=== PATIENT | female | born 1970 | race Caucasian/White ===

== ENCOUNTER 2020-10-01 07:01 | Inpatient (IN) | payer BC ==
--- NOTE | 2020-10-01 06:53 | PCM.PREANE ---
Preanesthetic Assessment - Procedure Proposed Procedure: LAVH with BS - Anesthesia/Transfusion/Family Hx Anesthesia History: Prior Anesthesia Without Reaction Type of Anesthesia Reaction: Excessive Nausea/Vomiting Family History of Anesthesia Reaction: No Transfusion History: No Prior Transfusion(s) Intubation History: Unknown - Review of Systems General: No Symptoms Pulmonary: No Symptoms (ETOH: rarely) Cardiovascular: No Symptoms Gastrointestinal: No Symptoms Neurological: No Symptoms (Lower back pain: 0/10), Headache, Change in Speech Other: Reports: None - Physical Assessment NPO Status Date: 09/30/20 NPO Status Time: 20:00 Vital Signs: HR:78 Sat:96% Temp:97.8 Resp:16 B/P:114/86 Height: 1.63 m Weight: 78 kg ASA Class: 1 Mental Status: Alert & Oriented x3 Airway Class: Mallampati = 2 Dentition: Reports: Normal Dentition, Caries Thyro-Mental Finger Breadths: 3 Mouth Opening Finger Breadths: 3 ROM/Head Extension: Full Lungs: Clear to Auscultation, Normal Respiratory Effort Cardiovascular: Regular Rate, Regular Rhythm, No Murmurs - Lab Values: All labs reviewed and noted and within acceptable ranges to proceed with scheduled procedure. - Allergies Allergies/Adverse Reactions: Allergies Allergy/AdvReac Type Severity Reaction Status Date / Time No Known Allergies Allergy Verified 09/30/20 11:18 - Anesthesia Plan Pre-Op Medication Ordered: None, Other (scopalamine patch behind right ear at 0734.) - Acknowledgements Anesthesia Type Planned: General Anesthesia Pt an Appropriate Candidate for the Planned Anesthesia: Yes Alternatives and Risks of Anesthesia Discussed w Pt/Guardian: Yes Pt/Guardian Understands and Agrees with Anesthesia Plan: Yes PreAnesthesia Questionnaire HEENT History: Reports: Impaired Vision, Other (See Below) Other HEENT History: sore throat, laryngitis Genitourinary History: Reports: Renal Calculus, Other (See Below) Other Genitourinary History: Dysuria with kidney stone Other Musculoskeletal History: history of low back pain Neurological History: Reports: Headaches, Chronic - Past Surgical History HEENT Surgical History: Reports: Oral Surgery Cardiovascular Surgical History: Reports: None GI Surgical History: Reports: None Female Surgical History: Reports: Section Musculoskeletal Surgical History: Reports: ORIF, Other (See Below) Other Musculoskeletal Surgeries/Procedures:: Right ankle ORIF with additional surgery in the past to remove the hardware Oncologic Surgical History: Reports: None - SUBSTANCE USE Tobacco Use Status *Q: Never Tobacco User Recreational Drug Use History: No - HOME MEDS Home Medications: Home Meds Multivitamin 1 tab PO DAILY 09/30/20 [History] - CURRENT (IN HOUSE) MEDS Current Meds: Current Medications Lactated Ringer's (Ringers, Lactated) 1,000 mls @ 125 mls/hr IV ASDIRECTED CECILIA Stop: 10/01/20 23:00 Lidocaine/Sodium Bicarbonate (Lidocaine 1%/Sod Bicarbonate In Ns 8.4% 1 Ml Syringe) 0.25 ml IDERM ONETIME PRN PRN Reason: Prior to IV Start Stop: 10/01/20 18:00 Sodium Chloride (Sodium Chloride 0.9% 10 Ml Syringe) 10 ml FLUSH ASDIRECTED PRN PRN Reason: Keep Vein Open Stop: 10/01/20 18:00
[~2020-10-01 07:01] MED LIST: Lactated Ringers 1,000 ML IV SCH; Lidocaine 1%/Sod Bicarbonate in NS 8.4% 1 ML Syringe IDERM PRN; Sodium Chloride 0.9% 10 ML Syringe FLUSH PRN
[2020-10-01] MEDS ORDERED: Scopolamine 1.5 MG Transdermal Patch TOP ONE (07:20)
[2020-10-01] MEDS ORDERED: Lidocaine 1% with EPINEPHrine 1:100,000 10 ML MDV ONE (07:22)
[2020-10-01] MEDS ORDERED: Sodium Chloride 0.9% 50 ML SDV ONE (07:22)
[2020-10-01] MEDS ORDERED: Bupivacaine 0.5% 30 ML SDV ONE (07:22)
[2020-10-01] MEDS ORDERED: Dexamethasone 4 MG/ML 5 ML MDV ONE (07:28)
[2020-10-01] MEDS ORDERED: HYDROmorphone 0.5 MG/0.5 ML Syringe ONE ×2 (07:28→08:34)
[2020-10-01] MEDS ORDERED: Propofol 200 MG/20 ML SDV ONE (07:28)
[2020-10-01] MEDS ORDERED: Lidocaine 1% 4 ML ONE (07:28)
[2020-10-01] MEDS ORDERED: Ketorolac 15 MG/ML SDV ONE (07:28)
[2020-10-01] MEDS ORDERED: ceFAZolin 1 GM Vial ONE (07:28)
[2020-10-01] MEDS ORDERED: Rocuronium 50 MG/5 ML Vial ONE ×2 (07:28→09:10)
[2020-10-01] MEDS ORDERED: Ondansetron 4 MG/2 ML SDV ONE (07:28)
[2020-10-01] MEDS ORDERED: Lactated Ringers 1,000 ML ONE ×3 (07:28→09:56)
[2020-10-01] MEDS ORDERED: fentaNYL 250 MCG/5 ML SDV ONE (07:29)
[2020-10-01] MEDS ORDERED: Midazolam 1 MG/ML 2 ML SDV ONE (07:29)
[2020-10-01] MEDS ORDERED: diphenhydrAMINE 50 MG/ML SDV IVPUSH PRN (08:15)
[2020-10-01] MEDS ORDERED: Ondansetron 4 MG/2 ML SDV IVPUSH PRN (08:15)
[2020-10-01] MEDS ORDERED: Metoclopramide 10 MG/2 ML SDV IV PRN (08:15)
[2020-10-01] MEDS ORDERED: ePHEDrine 50 MG/ML SDV IVPUSH PRN (08:15)
[2020-10-01] MEDS ORDERED: HYDROmorphone 0.5 MG/0.5 ML Syringe IVPUSH PRN (08:15)
[2020-10-01] MEDS ORDERED: ePHEDrine 50 MG/ML SDV ONE (09:37)
[2020-10-01] MEDS: fentaNYL 100 MCG/2 ML SDV IVPUSH PRN ×2 (11:02→11:17)
--- NOTE | 2020-10-01 11:09 | PCM.POSTAN ---
POST ANESTHESIA ASSESSMENT - MENTAL STATUS Mental Status: Alert - VITAL SIGNS Vital Signs: Last Vital Signs Temp 97.4 10/01/20 10:53 Pulse 73 10/01/20 10:53 Resp 12 10/01/20 10:53 BP 106/71 10/01/20 10:53 Pulse Ox 99% 10/01/20 10:53 - RESPIRATORY Respiratory Status: Respiratory Rate WNL, Airway Patent, O2 Saturation Stable, Supplemental Oxygen - CARDIOVASCULAR CV Status: Pulse Rate WNL, Blood Pressure Stable - GASTROINTESTINAL GI Status: No Symptoms - POST OP HYDRATION Hydration Status: Adequate & Stable
--- NOTE | 2020-10-01 11:23 | PCM48HPAN ---
Post Anesthesia Note - EVALUATION WITHIN 48HRS OF ANESTHETIC Vital Signs in Normal Range: Yes Patient Participated in Evaluation: Yes Respiratory Function Stable: Yes Airway Patent: Yes Cardiovascular Function Stable: Yes Hydration Status Stable: Yes Pain Control Satisfactory: Yes Nausea and Vomiting Control Satisfactory: Yes Mental Status Recovered: Yes Vital Signs: Last Vital Signs Temp 36.3 C 10/01/20 10:53 Pulse 78 10/01/20 07:15 Resp 10 L 10/01/20 11:00 BP 104/71 10/01/20 11:00 Pulse Ox 96 10/01/20 11:14
--- NOTE | 2020-10-01 11:33 | PCM.OPNOTE ---
- General Post-Op/Procedure Note Date of Surgery/Procedure: 10/01/20 Operative Procedure(s): Laparoscopy with dissection of the bilateral fallopian tubes and portions of the bilateral broad ligament with conversion to total abdominal hysterectomy due to poor visualization of pelvic structures Findings: Grossly enlarged uterus with large dominant fibroid noted that measured approximately 8 cm in size and otherwise normal-appearing uterus with normal- appearing bilateral fallopian tubes. Bilateral ovaries were grossly normal with small clear fluid cyst in the left ovary. The visualized portions of the intestines were normal. Pre Op Diagnosis: Uterine fibroids, female pelvic pain and menorrhagia Post-Op Diagnosis: Same with subserosal uterine fibroid noted after surgery Anesthesia Technique: General ET Tube Primary Surgeon: Jeffrey Montoya Anesthesia Provider: Lily Gamble Tomato Pulper Operator: Ralph Guzman Tomato Pulper Operator: Romain Leong ([id number]) Reason Tomato Pulper Operator Was Necessary: Patient safety and reduction of morbidity and mortality Role of Tomato Pulper Operator: Use of laparoscopic instruments for portions of the case and assistance with the abdominal hysterectomy with portions of the case performed on contract assistant side Pathology: Uterus, bilateral fallopian tubes and cervix Fluid Replacement, Intraop: 2,400 Output, Urine Amount: 500 EBL in mLs: 800 Drain/Tube Comments:: Loza catheter left in place Complications: Conversion from laparoscopic assisted vaginal hysterectomy to total abdominal hysterectomy due to poor visualization of pelvic structures and the size of the uterus Condition: Good Free Text/Narrative:: Length of procedure: 172 minutes Procedure in detail: The patient was seen in the preoperative holding area and risks, benefits, indications, and alternatives of the procedure were reviewed with the patient and she desired to proceed with a laparoscopic assisted vaginal hysterectomy, bilateral salpingectomy, possible unilateral or bilateral salpingo-oophorectomy and possible total abdominal hysterectomy. Consents were reviewed. The patient was taken back to the OR and given general anesthesia with an endotracheal tube which was placed without difficulty. She was placed in dorsal lithotomy position using Yellofin stirrups. She was prepped and draped in normal sterile fashion. A Loza catheter was placed without difficulty. Attention was then turned to her umbilicus and it was injected with 0.5% Marcaine and a 5 mm stab incision was made with a scalpel and a Veress needle was then inserted through the incision. The gas was turned on, with an opening pressure of 7 mmHg. Pneumoperitoneum was continued until 15 mmHg pressure. A 5 mm trocar was then inserted under direct visualization through the incision without difficulty. The uterus was inspected and felt to be of sufficient size to be able to to complete the case laparoscopically. Attention was then turned to the patient's right lower quadrant where an avascular space approximately usp between the ASIS and the umbilicus was identified. Local anesthetic was injected and a 5 mm incision was made with a scalpel. A 5 mm trocar was then inserted under direct visualization of the laparoscope. Attention was then turned to the left lower quadrant, where again an avascular portion of the abdominal wall was identified approximately usp between the ASIS and the umbilicus. Local anesthetic was injected and a scalpel was used to make a 5 mm incision. A 5 mm trocar was inserted under direct visualization with the laparoscope. Attention was then turned to the pelvis where the uterus was visualized and noted be overall normal in appearance with a large posterior subserosal fibroid with normal appearing bilateral fallopian tubes and normal-appearing bilateral ovaries. Again it was felt that the case would be able to be performed laparoscopically and decision was made to proceed. The atraumatic grasper was then removed from the right lower trocar and a Enseal vessel sealing device was introduced and was used to transect the right fallopian tube and round ligament. The mesosalpinx connecting the right fallopian tube was transected from the ovary and underlying tissue. The right round ligament was then transected using the Enseal vessel sealing device. The utero-ovarian ligament was then transected using the Enseal vessel sealing device. The right side of the uterus and broad ligament were then transected using the Enseal vessel sealing device until the level of the uterovesical peritoneal reflection. The bladder flap was then further created using the Enseal device and gentle traction of the bladder away from the lower uterine segment. A Kitner probe was also used to push some of the bladder away from the lower uterine segment. This was repeated on the patient's left side. The fallopian tube was transected from the mesosalpinx using the Enseal vessel sealing device. The utero-ovarian ligament was then transected using Enseal vessel sealing device. The left round ligament was transected using Enseal vessel sealing device and the broad ligament was transected to the level of the uterovesical peritoneal reflection. At this time we were having difficulty retracting the uterus for good visualization and the broad ligaments were noted to be somewhat thicker than normal and thicker than the jaws of the instrument. On the lower uterine segment there was difficulty in finding a normal plane between the bladder and the lower uterine segment. Because of these difficulties in visualizing the normal structures as well as difficulty in maneuvering of the uterus decision was made to proceed with an abdominal hysterectomy. The gas was then evacuated from the peritoneum and trocars removed. These were closed using 4-0 Monocryl suture and Dermabond. The patient was undraped and the suprapubic area was shaved for prep for the surg prachi. The skin was infiltrated using 0.5% marcaine for local anesthesia near the previous Pfannenstiel skin scar that was present. A Pfannenstiel incision on the old scar was made using a scalpel. The incision was then taken down to the fascia with sharp dissection. The fascia was then incised in the midline using scalpel and extended bilaterally with North scissors. Alivia clamps were used to grasp the inferior edge of the fascial incision and the rectus muscles dissected off bluntly in the midline. The superior aspect of the fascia was then grasped with Alivia clamps and similarly the rectus muscles were dissected off of the fascia bluntly and sharply using North scissors. The rectus muscles were then in the midline and the peritoneum was entered bluntly. An Luciano retractor was then used to retract away the muscles and abdominal wall. The intestines were then packed away gently with rolled moist laps. The uterus was then visualized and was grasped with a double-tooth tenaculum. Attention was then turned to the bladder flap and with blunt dissection the bladder flap was able to be fully prepared with visualization of the lower uterine segment and the bladder well away from the lower uterine segment. This was accomplished using blunt dissection with moist laps. The bilateral broad ligaments were then taken down further using Enseal cautery device to try to get down to the level of the uterine artery. Because of the size of the uterus this was then removed with the superior portion of the uterus removed en bloc with the bilateral fallopian tubes. The left uterine artery was having some bleeding and this was cauterized using the Enseal vessel sealing device. A double-tooth retractor was then used to grasp the remainder of the cervix and an Enseal vess el sealing device was used on the bilateral sides of the cervix down to the level of the cervix. Curved Hillary clamps were used to come across the vagina and a scissors was used to cut this portion of the broad ligament on the bilateral sides. This was not past the level of the cervix at this time and these were suture ligated using 0 Vicryl. The curved Hillary clamps were again used to come across the vagina just past the distal portion of the cervix. The cervix was then cut away and handed off as an additional part of the specimen. The lateral portions of the the vaginal cuff was then closed using Meir sutures around the clamps that were present with 0 Vicryl. These were grasped using hemostats for further visualization. The vaginal cuff edges were grasped using a Alivia clamp and the midline of the vaginal cuff was closed with running suture of 0 Vicryl. The pedicles were inspected at this time and were found to have several areas with bleeding along the lateral edges near the vaginal cuff. Jyweji-or-sjeia sutures with 0 Vicryl were used in these areas to achieve hemostasis. There was also some additional bleeding along of the anterior vaginal cuff that was cauterized and made hemostatic. The pelvis was then irrigated with copious amounts of saline. All of the laps were removed at this time. The fascia was then closed with 0-Vicryl suture in a running fashion. The skin incision was then closed with 4-0 Monocryl suture and a Prineo dressing was placed over the incision. The patient was then extubated and taken out of the operating room in stable condition. Sponge, lap and needle counts were correct at the end of the case. There were no complications. Patient will be admitted for monitoring overnight with plan for possible discharge on POD #1. Review of images IMG 001: Global view of the uterus with portions of the fibroid, bilateral fallopian tubes and ovaries noted. IMG 002: Left fallopian tube and ovary with simple cyst present in the left ovary IMG 003: Anterior cul-de-sac with some adhesions noted IMG 004: Additional view of the anterior cul-de-sac with adhesions from the anterior pelvic wall to the to the lower uterine segment Jeffrey Montoya MD 11:38 AM 10/01/2020
[2020-10-01] MEDS ORDERED: Magnesium Hydroxide 400 MG/5 ML Susp 30 ML Cup PO PRN (12:16)
[2020-10-01] MEDS ORDERED: Acetaminophen/oxyCODONE 325-5 MG Tab PO PRN (12:16)
[2020-10-01] MEDS: Acetaminophen/oxyCODONE 325-5 MG Tab PO PRN ×2 (13:03→14:02)
[2020-10-01] MEDS: Ketorolac 15 MG/ML SDV IVPUSH SCH ×2 (16:36→22:27)
[2020-10-01] MEDS: Docusate Sodium 100 MG Cap PO SCH (21:14)
[2020-10-02] MEDS: Ketorolac 15 MG/ML SDV IVPUSH SCH (04:30)
[2020-10-02] MEDS: Acetaminophen/oxyCODONE 325-5 MG Tab PO PRN ×2 (06:27→12:29)
--- NOTE | 2020-10-02 07:40 | PCM48HPAN ---
Post Anesthesia Note - EVALUATION WITHIN 48HRS OF ANESTHETIC Vital Signs in Normal Range: Yes Patient Participated in Evaluation: Yes Respiratory Function Stable: Yes Airway Patent: Yes Cardiovascular Function Stable: Yes Hydration Status Stable: Yes Pain Control Satisfactory: Yes Nausea and Vomiting Control Satisfactory: Yes Mental Status Recovered: Yes Vital Signs: Last Vital Signs Temp 98.1 F 10/02/20 00:14 Pulse 78 10/02/20 00:14 Resp 16 10/02/20 00:14 BP 105/57 L 10/02/20 00:14 Pulse Ox 93 L 10/02/20 00:14 - COMMENTS/OBSERVATIONS Free Text/Narrative:: minimal pain
--- NOTE | 2020-10-02 08:54 | PCM.SN.2 ---
- Free Text/Narrative Note: Post Op Note Subjective: Patient reports feeling well overall. Pain minimal and controlled with oral medications. Tolerating regular diet. Reports not passing flatus at this time but feels like she is about to start passing flatus. She reports that the feeling will go away shortly after feeling some rectal pressure. Voiding without difficulty after having her catheter removed. Reports that she did notice a small amount of bright red bleeding in the urine with the first void after having her catheter removed. Ambulating without difficulty. Denies any lightheadedness or dizziness with ambulation. Denies any fevers or chills. Denies any vaginal bleeding. Denies any bleeding from her incision. Objective: Vitals Vital Signs - 24 hr 10/01/20 10/01/20 10/01/20 10:53 11:00 11:14 Temperature Temperature [ 36.3 C Temporal] Pulse, Peripheral Respiratory 12 10 L Rate Blood Pressure Blood Pressure 106/71 104/71 [Right Upper Arm] O2 Sat by Pulse 99 95 Oximetry O2 Sat by Pulse 99 96 Oximetry [ Nasal Cannula] 10/01/20 10/01/20 10/01/20 11:15 11:30 11:35 Temperature Temperature [ Temporal] Pulse, Peripheral Respiratory 14 11 L Rate Blood Pressure Blood Pressure 103/60 100/56 L [Right Upper Arm] O2 Sat by Pulse 97 96 Oximetry O2 Sat by Pulse 96 85 L Oximetry [ Nasal Cannula] 10/01/20 10/01/20 10/01/20 11:45 12:16 12:32 Temperature Temperature [ 36.2 C 36.0 C L Temporal] Pulse, 78 Peripheral Respiratory 12 Rate Blood Pressure 96/45 L Blood Pressure 105/60 [Right Upper Arm] O2 Sat by Pulse 94 L 82 L Oximetry O2 Sat by Pulse 94 L Oximetry [ Nasal Cannula] 10/01/20 10/01/20 10/01/20 13:02 13:32 14:02 Temperature Temperature [ Temporal] Pulse, 79 105 H 85 Peripheral Respiratory Rate Blood Pressure 100/52 L 108/59 L 110/52 L Blood Pressure [Right Upper Arm] O2 Sat by Pulse 99 98 99 Oximetry O2 Sat by Pulse Oximetry [ Nasal Cannula] 10/01/20 10/01/20 10/01/20 15:02 16:01 21:17 Temperature 36.6 C 36.7 C Temperature [ Temporal] Pulse, 82 93 93 Peripheral Respiratory 14 16 Rate Blood Pressure 101/58 L 98/58 L 97/59 L Blood Pressure [Right Upper Arm] O2 Sat by Pulse 97 93 L 93 L Oximetry O2 Sat by Pulse Oximetry [ Nasal Cannula] 10/02/20 00:14 Temperature 36.7 C Temperature [ Temporal] Pulse, 78 Peripheral Respiratory 16 Rate Blood Pressure 105/57 L Blood Pressure [Right Upper Arm] O2 Sat by Pulse 93 L Oximetry O2 Sat by Pulse Oximetry [ Nasal Cannula] Gen: No acute distress, alert and oriented Lungs: Clear to auscultation bilaterally Heart: Regular rate and rhythm Abdomen: Soft, minimal appropriate tenderness, nondistended, bowel sounds positive Incisions: Healing well, no bleeding or discharge, no erythema present, skin glue covering laparoscopy incisions and Prineo dressing over Pfannenstiel incision Laboratory Results - last 24 hr 10/02/20 Range/Units 05:21 WBC 11.83 H (3.98-10.04) K/mm3 RBC 3.46 L (3.98-5.22) M/mm3 Hgb 10.2 L D (11.2-15.7) gm/dl Hct 31.8 L (34.1-44.9) % MCV 91.9 D (79.4-94.8) fl MCH 29.5 (25.6-32.2) pg MCHC 32.1 L (32.2-35.5) g/dl RDW Std Deviation 41.6 (36.4-46.3) fL Plt Count 204 (182-369) K/mm3 MPV 9.9 (9.4-12.3) fl Neut % (Auto) 75.6 H (34.0-71.1) % Lymph % (Auto) 11.6 L (19.3-51.7) % Crisp % (Auto) 12.3 (4.7-12.5) % Eos % (Auto) 0.1 L (0.7-5.8) Baso % (Auto) 0.1 (0.1-1.2) % Neut # (Auto) 8.95 H (1.56-6.13) K/mm3 Lymph # (Auto) 1.37 (1.18-3.74) K/mm3 Crisp # (Auto) 1.46 H (0.24-0.36) K/mm3 Eos # (Auto) 0.01 L (0.04-0.36) K/mm3 Baso # (Auto) 0.01 (0.01-0.08) K/mm3 Assesment/Plan: 50-year-old -0-0-3 status post total abdominal hysterectomy and bilateral salpingectomy after conversion from laparoscopic assisted vaginal hysterectomy, POD #1 Doing well No concerns at this time Routine post op care Monitor vitals Monitor for flatus Patient with drop in her hemoglobin down to 10.2 this morning, no signs or symptoms of acute blood loss anemia. No additional concerns at this time. Anticipate discharge home today Jeffrey Montoya MD 8:52 AM 10/02/2020
--- NOTE | 2020-10-02 08:59 | PCM.DCSUM1 ---
Discharge Summary - Hospital Course Free Text/Narrative:: - General Post-Op/Procedure Note Date of Surgery/Procedure: 10/01/20 Operative Procedure(s): Laparoscopy with dissection of the bilateral fallopian tubes and portions of the bilateral broad ligament with conversion to total abdominal hysterectomy due to poor visualization of pelvic structures Findings: Grossly enlarged uterus with large dominant fibroid noted that measured approximately 8 cm in size and otherwise normal-appearing uterus with normal- appearing bilateral fallopian tubes. Bilateral ovaries were grossly normal with small clear fluid cyst in the left ovary. The visualized portions of the intestines were normal. Pre Op Diagnosis: Uterine fibroids, female pelvic pain and menorrhagia Post-Op Diagnosis: Same with subserosal uterine fibroid noted after surgery Anesthesia Technique: General ET Tube Primary Surgeon: Jeffrey Montoya Anesthesia Provider: Lily Gamble Field Services Director: Ralph Guzman Field Services Director: Romain Leong ([id number]) Reason Field Services Director Was Necessary: Patient safety and reduction of morbidity and mortality Role of Field Services Director: Use of laparoscopic instruments for portions of the case and assistance with the abdominal hysterectomy with portions of the case performed on assistant general manager side Pathology: Uterus, bilateral fallopian tubes and cervix Fluid Replacement, Intraop: 2,400 Output, Urine Amount: 500 EBL in mLs: 800 Drain/Tube Comments:: Loza catheter left in place Complications: Conversion from laparoscopic assisted vaginal hysterectomy to total abdominal hysterectomy due to poor visualization of pelvic structures and the size of the uterus Condition: Good Free Text/Narrative:: Length of procedure: 172 minutes Procedure in detail: The patient was seen in the preoperative holding area and risks, benefits, indications, and alternatives of the procedure were reviewed with the patient and she desired to proceed with a laparoscopic assisted vaginal hysterectomy, bilateral salpingectomy, possible unilateral or bilateral salpingo-oophorectomy and possible total abdominal hysterectomy. Consents were reviewed. The patient was taken back to the OR and given general anesthesia with an endotracheal tube which was placed without difficulty. She was placed in dorsal lithotomy position using Yellofin stirrups. She was prepped and draped in normal sterile fashion. A Loza catheter was placed without difficulty. Attention was then turned to her umbilicus and it was injected with 0.5% Marcaine and a 5 mm stab incision was made with a scalpel and a Veress needle was then inserted through the incision. The gas was turned on, with an opening pressure of 7 mmHg. Pneumoperitoneum was continued until 15 mmHg pressure. A 5 mm trocar was then inserted under direct visualization through the incision without difficulty. The uterus was inspected and felt to be of sufficient size to be able to to complete the case laparoscopically. Attention was then turned to the patient's right lower quadrant where an avascular space approximately fpc between the ASIS and the umbilicus was identified. Local anesthetic was injected and a 5 mm incision was made with a scalpel. A 5 mm trocar was then inserted under direct visualization of the laparoscope. Attention was then turned to the left lower quadrant, where again an avascular portion of the abdominal wall was identified approximately fpc between the ASIS and the umbilicus. Local anesthetic was injected and a scalpel was used to make a 5 mm incision. A 5 mm trocar was inserted under direct visualization with the laparoscope. Attention was then turned to the pelvis where the uterus was visualized and noted be overall normal in appearance with a large posterior subserosal fibroid with normal appearing bilateral fallopian tubes and normal-appearing bilateral ovaries. Again it was felt that the case would be able to be performed laparoscopically and decision was made to proceed. The atraumatic grasper was then removed from the right lower trocar and a Enseal vessel sealing device was introduced and was used to transect the right fallopian tube and round ligament. The mesosalpinx connecting the right fallopian tube was transected from the ovary and underlying tissue. The right round ligament was then transected using the Enseal vessel sealing device. The utero-ovarian ligament was then transected using the Enseal vessel sealing device. The right side of the uterus and broad ligament were then transected using the Enseal vessel sealing device until the level of the uterovesical peritoneal reflection. The bladder flap was then further created using the Enseal device and gentle traction of the bladder away from the lower uterine segment. A Kitner probe was also used to push some of the bladder away from the lower uterine segment. This was repeated on the patient's left side. The fallopian tube was transected from the mesosalpinx using the Enseal vessel sealing device. The utero-ovarian ligament was then transected using Enseal vessel sealing device. The left round ligament was transected using Enseal vessel sealing device and the broad ligament was transected to the level of the uterovesical peritoneal reflection. At this time we were having difficulty retracting the uterus for good visualization and the broad ligaments were noted to be somewhat thicker than normal and thicker than the jaws of the instrument. On the lower uterine segment there was difficulty in finding a normal plane between the bladder and the lower uterine segment. Because of these difficulties in visualizing the normal structures as well as difficulty in maneuvering of the uterus decision was made to proceed with an abdominal hysterectomy. The gas was then evacuated from the peritoneum and trocars removed. These were closed using 4-0 Monocryl suture and Dermabond. The patient was undraped and the suprapubic area was shaved for prep for the surgery. The skin was infiltrated using 0.5% marcaine for local anesthesia near the previous Pfannenstiel skin scar that was present. A Pfannenstiel incision on the old scar was made using a scalpel. The incision was then taken down to the fascia with sharp dissection. The fascia was then incised in the midline using scalpel and extended bilaterally with North scissors. Alivia clamps were used to grasp the inferior edge of the fascial incision and the rectus muscles dissected off bluntly in the midline. The superior aspect of the fascia was then grasped with Alivia clamps and similarly the rectus muscles were dissected off of the fascia bluntly and sharply using North scissors. The rectus muscles were then in the midline and the peritoneum was entered bluntly. An Luciano retractor was then used to retract away the muscles and abdominal wall. The intestines were then packed away gently with rolled moist laps. The uterus was then visualized and was grasped with a double-tooth tenaculum. Attention was then turned to the bladder flap and with blunt dissection the bladder flap was able to be fully prepared with visualization of the lower uterine segment and the bladder well away from the lower uterine segment. This was accomplished using blunt dissection with moist laps. The bilateral broad ligaments were then taken down further using Enseal cautery device to try to get down to the level of the uterine artery. Because of the size of the uterus this was then removed with the superior portion of the uterus removed en bloc with the bilateral fallopian tubes. The left uterine artery was having some bleeding and this was cauterized using the Enseal vessel sealing device. A double-tooth retractor was then used to grasp the remainder of the cervix and an Enseal vessel sealing device was used on the bilateral sides of the cervix down to the level of the cervix. Curved Hillary clamps were used to come across the vagina and a scissors was used to cut this portion of the broad ligament on the bilateral sides. This was not past the level of the cervix at this time and these were suture ligated using 0 Vicryl. The curved Hillary clamps were again used to come across the vagina just past the distal portion of the cervix. The cervix was then cut away and handed off as an additional part of the specimen. The lateral portions of the the vaginal cuff was then closed using Meir sutures around the clamps that were present with 0 Vicryl. These were grasped using hemostats for further visualization. The vaginal cuff edges were grasped using a Alivia clamp and the midline of the vaginal cuff was closed with running suture of 0 Vicryl. The pedicles were inspected at this time and were found to have several areas with bleeding along the lateral edges near the vaginal cuff. [id number] sutures with 0 Vicryl were used in these areas to achieve hemostasis. There was also some additional bleeding along of the anterior vaginal cuff that was cauterized and made hemostatic. The pelvis was then irrigated with copious amounts of saline. All of the laps were removed at this time. The fascia was then closed with 0-Vicryl suture in a running fashion. The skin incision was then closed with 4-0 Monocryl suture and a Prineo dressing was placed over the incision. The patient was then extubated and taken out of the operating room in stable condition. Sponge, lap and needle counts were correct at the end of the case. There were no complications. Diagnosis: Stroke: No - Discharge Data Discharge Date: 10/02/20 Discharge Disposition: Home, Self-Care 01 Condition: Good - Referral to Home Health Primary Care Physician: Amira Brower, EXPANDING MACHINE OPERATOR - Discharge Diagnosis/Problem(s) (1) Subserosal leiomyoma of uterus SNOMED Code(s): 68139661 ICD Code: D25.2 - SUBSEROSAL LEIOMYOMA OF UTERUS Status: Acute Current Visit: Yes (2) Female pelvic pain SNOMED Code(s): 714284188 ICD Code: R10.2 - PELVIC AND PERINEAL PAIN Status: Acute Current Visit: Yes (3) Menorrhagia with regular cycle SNOMED Code(s): 826496906 ICD Code: N92.0 - EXCESSIVE AND FREQUENT MENSTRUATION WITH REGULAR CYCLE Status: Acute Current Visit: Yes (4) S/P laparoscopy SNOMED Code(s): 587168496, 991780757, 469539929 ICD Code: Z98.890 - OTHER SPECIFIED POSTPROCEDURAL STATES Status: Acute Current Visit: Yes (5) S/P abdominal hysterectomy SNOMED Code(s): 702260463, 685895660 ICD Code: Z90.710 - ACQUIRED ABSENCE OF BOTH CERVIX AND UTERUS Status: Acute Current Visit: Yes (6) Status post bilateral salpingectomy SNOMED Code(s): 715355197, 880232239 ICD Code: Z90.79 - ACQUIRED ABSENCE OF OTHER GENITAL ORGAN(S) Status: Acute Current Visit: Yes - Patient Summary/Data Operative Procedure(s) Performed: Laparoscopy with dissection of the bilateral fallopian tubes and portions of the bilateral broad ligament with conversion to total abdominal hysterectomy due to poor visualization of pelvic structures Complications: Conversion from laparoscopic procedure to total abdominal hysterectomy Consults: None Hospital Course: Buffy Quiros was admitted for laparoscopic-assisted vaginal hysterectomy, bilateral salpingectomy, possible unilateral or bilateral oophorectomy and possible total abdominal hysterectomy. She was taken back to the OR and given general anesthesia with endotracheal tube. She was given Ancef 2 g IV for antibiotic prophylaxis. She was prepped and draped in the normal fashion. She underwent laparoscopic-assisted vaginal hysterectomy and a portion of the procedure was able to be completed laparoscopically but due to the size of the uterus as well as difficulty with visualization of all of the pelvic structures decision was made to convert to a total abdominal hysterectomy. The patient then had completion of her hysterectomy as a total abdominal hysterectomy with a Pfannenstiel incision. Patient had removal of the uterus, bilateral fallopian tubes and cervix. She was closed in a normal fashion. Please see the operative report for full details. Her post operative course was uneventful. Her pain was well controlled and she had no vaginal bleeding. She was ambulating, tolerating a regular diet and voiding normally in the morning of POD #1. She was passing flatus and has not had a bowel movement. She was afebrile and her hematocrit was 31.8 on POD #1. She desired to be discharged home in the afternoon of POD #1. - Patient Instructions Diet: Regular Diet as Tolerated Activity: Apply Ice, As Tolerated, No Lifting Over 20 Pounds Activity, Other: Nothing in the vagina for 6 weeks Driving: Do Not Drive (While taking narcotic medications or having significant pain) Showering/Bathing: May Shower Wound/Incision Care: Keep Operative Site/Wound Site Clean and Dry Notify Provider of: Fever, Increased Pain, Swelling and Redness, Drainage, Nausea and/or Vomiting Other/Special Instructions: Please contact your physician's office if you note any bleeding or pus coming from the abdominal incision. Please contact your physician's office if you have heavy vaginal bleeding enough to soak a pad in less than an hour. - Discharge Plan *PRESCRIPTION DRUG MONITORING PROGRAM REVIEWED*: Yes *COPY OF PRESCRIPTION DRUG MONITORING REPORT IN PATIENT ADDY: No Prescriptions/Med Rec: Acetaminophen/oxyCODONE [Percocet 325-5 MG] 1 - 2 tab PO Q6H PRN #20 tablet PRN Reason: Pain Home Medications: Home Meds Multivitamin 1 tab PO DAILY 09/30/20 [History] Acetaminophen/oxyCODONE [Percocet 325-5 MG] 1 - 2 tab PO Q6H PRN #20 tablet 10/02/20 [Rx] Docusate Sodium [Colace] 100 mg PO BID cap 10/02/20 [Rx] Ibuprofen [Motrin] 600 mg PO Q6H PRN tablet 10/02/20 [Rx] Patient Handouts: Abdominal Hysterectomy, Care After Referrals: Jeffrey Montoya MD [Physician] - (Follow-up in 2 weeks for routine postoperative visit or earlier as needed.) - Discharge Summary/Plan Comment DC Time >30 min.: No - Patient Data Vitals - Most Recent: Last Vital Signs Temp 36.7 C 10/02/20 00:14 Pulse 78 10/02/20 00:14 Resp 16 10/02/20 00:14 BP 105/57 L 10/02/20 00:14 Pulse Ox 93 L 10/02/20 00:14 Weight - Most Recent: 78 kg I&O - Last 24 hours: Intake & Output 10/01/20 10/02/20 10/02/20 22:59 06:59 14:59 Intake Total 240 120 Output Total 1000 1400 Balance -760 -1280 Lab Results - Last 24 hrs: Laboratory Results - last 24 hr 10/02/20 Range/Units 05:21 WBC 11.83 H (3.98-10.04) K/mm3 RBC 3.46 L (3.98-5.22) M/mm3 Hgb 10.2 L D (11.2-15.7) gm/dl Hct 31.8 L (34.1-44.9) % MCV 91.9 D (79.4-94.8) fl MCH 29.5 (25.6-32.2) pg MCHC 32.1 L (32.2-35.5) g/dl RDW Std Deviation 41.6 (36.4-46.3) fL Plt Count 204 (182-369) K/mm3 MPV 9.9 (9.4-12.3) fl Neut % (Auto) 75.6 H (34.0-71.1) % Lymph % (Auto) 11.6 L (19.3-51.7) % [place] % (Auto) 12.3 (4.7-12.5) % Eos % (Auto) 0.1 L (0.7-5.8) Baso % (Auto) 0.1 (0.1-1.2) % Neut # (Auto) 8.95 H (1.56-6.13) K/mm3 Lymph # (Auto) 1.37 (1.18-3.74) K/mm3 [place] # (Auto) 1.46 H (0.24-0.36) K/mm3 Eos # (Auto) 0.01 L (0.04-0.36) K/mm3 Baso # (Auto) 0.01 (0.01-0.08) K/mm3 Med Orders - Current: Current Medications Docusate Sodium (Docusate Sodium 100 Mg Cap) 100 mg PO BID [facility] Last Admin: 10/01/20 21:14 Dose: 100 mg Documented by: Ibuprofen (Ibuprofen 600 Mg Tab) 600 mg PO Q6H PRN PRN Reason: Pain (mild 1-3) Magnesium Hydroxide (Magnesium Hydroxide 400 Mg/5 Ml Susp 30 Ml Cup) 30 ml PO BID PRN PRN Reason: Constipation Oxycodone/Acetaminophen (Acetaminophen/Oxycodone 325-5 Mg Tab) 1 tab PO Q6H PRN PRN Reason: Pain (moderate 4-6) Last Admin: 10/02/20 06:27 Dose: 1 tab Documented by: Oxycodone/Acetaminophen (Acetaminophen/Oxycodone 325-5 Mg Tab) 2 tab PO Q6H PRN PRN Reason: Pain (severe 7-10) Discontinued Medications Bupivacaine HCl (Bupivacaine 0.5% 30 Ml Sdv) Confirm Administered Dose 30 ml .ROUTE .STK-MED ONE Stop: 10/01/20 07:23 Last Admin: 10/01/20 09:25 Dose: 11 ml Documented by: Cefazolin Sodium (Cefazolin 1 Gm Vial) Confirm Administered Dose 2 gm .ROUTE .STK-MED ONE Stop: 10/01/20 07:29 Dexamethasone (Dexamethasone 4 Mg/Ml 5 Ml Mdv) Confirm Administered Dose 20 mg .ROUTE .STK-MED ONE Stop: 10/01/20 07:29 Diphenhydramine HCl (Diphenhydramine 50 Mg/Ml Sdv) 25 mg IVPUSH Q6H PRN PRN Reason: pruritis Ephedrine Sulfate (Ephedrine 50 Mg/Ml Sdv) 5 mg IVPUSH ASDIRECTED PRN PRN Reason: Hypotension Stop: 10/01/20 23:00 Ephedrine Sulfate (Ephedrine 50 Mg/Ml Sdv) Confirm Administered Dose 50 mg .ROUTE .STK-MED ONE Stop: 10/01/20 09:38 Fentanyl (Fentanyl 250 Mcg/5 Ml Sdv) Confirm Administered Dose 250 mcg .ROUTE .STK-MED ONE Stop: 10/01/20 07:30 Fentanyl (Fentanyl 100 Mcg/2 Ml Sdv) 50 mcg IVPUSH Q20M PRN PRN Reason: Pain Stop: 10/01/20 23:00 Last Admin: 10/01/20 11:17 Dose: 50 mcg Documented by: Glycopyrrolate (Glycopyrrolate 0.2 Mg/Ml 2 Ml Syringe) Confirm Administered Dose 0.8 mg .ROUTE .STK-MED ONE Stop: 10/01/20 09:36 Glycopyrrolate (Glycopyrrolate 0.2 Mg/Ml 2 Ml Syringe) Confirm Administered Dose 0.4 mg .ROUTE .STK-MED ONE Stop: 10/01/20 10:02 Hydromorphone HCl (Hydromorphone 0.5 Mg/0.5 Ml Syringe) Confirm Administered Dose 0.5 mg .ROUTE .STK-MED ONE Stop: 10/01/20 07:29 Hydromorphone HCl (Hydromorphone 0.5 Mg/0.5 Ml Syringe) 0.5 mg IVPUSH Q10M PRN PRN Reason: Pain (severe 7-10) Stop: 10/01/20 23:00 Last Admin: 10/01/20 11:05 Dose: 0.5 mg Documented by: Hydromorphone HCl (Hydromorphone 0.5 Mg/0.5 Ml Syringe) Confirm Administered Dose 0.5 mg .ROUTE .STK-MED ONE Stop: 10/01/20 08:35 Lactated Ringer's (Ringers, Lactated) 1,000 mls @ 125 mls/hr IV ASDIRECTED [facility] Stop: 10/01/20 23:00 Last Admin: 10/01/20 07:20 Dose: 125 mls/hr Documented by: Lidocaine HCl (Xylocaine-Mpf 1%) Confirm Administered Dose 4 mls @ as directed .ROUTE .STK-MED ONE Stop: 10/01/20 07:29 Lactated Ringer's (Ringers, Lactated) Confirm Administered Dose 1,000 mls @ as directed .ROUTE .STK-MED ONE Stop: 10/01/20 07:29 Lactated Ringer's (Ringers, Lactated) Confirm Administered Dose 1,000 mls @ as directed .ROUTE .STK-MED ONE Stop: 10/01/20 09:11 Lactated Ringer's (Ringers, Lactated) Confirm Administered Dose 1,000 mls @ as directed .ROUTE .STK-MED ONE Stop: 10/01/20 09:57 Ketorolac Tromethamine (Ketorolac 15 Mg/Ml Sdv) Confirm Administered Dose 15 mg .ROUTE .STK-MED ONE Stop: 10/01/20 07:29 Ketorolac Tromethamine (Ketorolac 15 Mg/Ml Sdv) 15 mg IVPUSH Q6H [facility] Stop: 10/02/20 04:31 Last Admin: 10/02/20 04:30 Dose: 15 mg Documented by: Lidocaine/Epinephrine (Lidocaine 1% With Epinephrine 1:100,000 10 Ml Mdv) Confirm Administered Dose 10 ml .ROUTE .STK-MED ONE Stop: 10/01/20 07:23 Lidocaine/Sodium Bicarbonate (Lidocaine 1%/Sod Bicarbonate In Ns 8.4% 1 Ml Syringe) 0.25 ml IDERM ONETIME PRN PRN Reason: Prior to IV Start Stop: 10/01/20 18:00 Last Admin: 10/01/20 07:20 Dose: 0.25 ml Documented by: Metoclopramide HCl (Metoclopramide 10 Mg/2 Ml Sdv) 10 mg IV ONETIME PRN PRN Reason: Nausea/Vomiting Stop: 10/01/20 23:00 Midazolam HCl (Midazolam 1 Mg/Ml 2 Ml Sdv) Confirm Administered Dose 2 mg .ROUTE .STK-MED ONE Stop: 10/01/20 07:30 Miscellaneous Medication (Phenylephrine Hcl In 0.9% Nacl 1 Mg/10 Ml Syringe) Confirm Administered Dose 1 mg .ROUTE .STK-MED ONE Stop: 10/01/20 07:59 Miscellaneous Medication (Phenylephrine Hcl In 0.9% Nacl 1 Mg/10 Ml Syringe) 0 mg IVPUSH ONETIME ONE Stop: 10/01/20 08:16 Last Admin: 10/01/20 13:05 Dose: Not Given Documented by: Neostigmine Methylsulfate (Neostigmine Methylsulfate 5 Mg/5 Ml Syringe) Confirm Administered Dose 5 mg .ROUTE .STK-MED ONE Stop: 10/01/20 09:36 Ondansetron HCl (Ondansetron 4 Mg/2 Ml Sdv) Confirm Administered Dose 4 mg .ROUTE .STK-MED ONE Stop: 10/01/20 07:29 Ondansetron HCl (Ondansetron 4 Mg/2 Ml Sdv) 4 mg IVPUSH ONETIME PRN PRN Reason: Nausea/Vomiting Stop: 10/01/20 23:00 Propofol (Propofol 200 Mg/20 Ml Sdv) Confirm Administered Dose 200 mg .ROUTE .STK-MED ONE Stop: 10/01/20 07:29 Rocuronium [place] (Rocuronium 50 Mg/5 Ml Vial) Confirm Administered Dose 50 mg .ROUTE .STK-MED ONE Stop: 10/01/20 07:29 Rocuronium [place] (Rocuronium 50 Mg/5 Ml Vial) Confirm Administered Dose 50 mg .ROUTE .STK-MED ONE Stop: 10/01/20 09:11 Scopolamine (Scopolamine 1.5 Mg Transdermal Patch) 1.5 mg TOP ONETIME ONE Stop: 10/01/20 07:21 Last Admin: 10/01/20 07:34 Dose: 1.5 mg Documented by: Sodium Chloride (Sodium Chloride 0.9% 10 Ml Syringe) 10 ml FLUSH ASDIRECTED PRN PRN Reason: Keep Vein Open Stop: 10/01/20 18:00 Sodium Chloride (Sodium Chloride 0.9% 50 Ml Sdv) Confirm Administered Dose 50 ml .ROUTE .STK-MED ONE Stop: 10/01/20 07:23
[2020-10-02] MEDS: Docusate Sodium 100 MG Cap PO SCH (10:29)
[2020-10-02] MEDS ORDERED: Ibuprofen 600 MG Tab PO PRN (10:30)
== END 2020-10-02 14:25 | disposition home or self-care (01) | DRG 519 ==
LOC: JD.SDS 07:01 → JD.OB 11:09
PROVIDERS: ADMIT Obstetrics & Gynecology; ATTEND Obstetrics & Gynecology
PROC: 0UT90ZZ Resection of Uterus, Open Approach (ICD-10-PCS; principal; 2020-10-01)
PROC: 0UJD4ZZ Inspection of Uterus and Cervix, Percutaneous Endoscopic Approach (ICD-10-PCS; 2020-10-01)
PROC: 0UT70ZZ Resection of Bilateral Fallopian Tubes, Open Approach (ICD-10-PCS; 2020-10-01)
DX: D25.2 Subserosal leiomyoma of uterus (principal); N92.0 Excessive and frequent menstruation with regular cycle; Z87.442 Personal history of urinary calculi; Z79.899 Other long term (current) drug therapy; Z88.5 Allergy status to narcotic agent
CPT/HCPCS: 00840; 36415; 81001; 81025; 85025; 86850; 86900; 86901; A9270-GY; J0690; J1100; J1170; J1885; J2250; J2370; J2405; J2704; J2710; J3010; J3490; J7120